=== PATIENT | male | born 1980 | race Caucasian/White ===

== ENCOUNTER 2019-02-23 13:28 | Inpatient (IN) | payer OTHER ==
[2019-02-23] MEDS ORDERED: FOLIC ACID INJECTION - 1 MG, THIAMINE HCL 100 MG, MULTIVIT INJECTION ADULT 10 ML in SOD... IVPB ONE (14:18)
[2019-02-23] MEDS ORDERED: chlordiazePOXIDE HCL 25 MG CAPSULE PO ONE ×2 (14:18→14:23)
--- NOTE | 2019-02-23 14:25 | PDOC ---
History of Present Illness - General Chief Complaint: Alcohol intoxication Stated Complaint: Alcohol intoxication Time Seen by Provider: 02/23/19 13:57 History Source: Patient Exam Limitations: No Limitations - History of Present Illness Initial Comments: 02/23/19 14:39 38 yo M with a hx of ETOH abuse presents to the emergency department s/p fall that occurred today with positive LOC. Per the patient's mother at bedside, the patient was seen yesterday (lives with maternal grandfather) with more shaking than usual in the upper extremities bilaterally. The patient at 9:30 am had an unwitnessed fall today that he doesnt remember. The mother heard the fall with a scream antecedent to it. She found the patient with upper extremity flexion bilaterally with rigidity that lasted for 1 minute on the floor. Regained consciousness but with confusion and disorientation for 20 minutes. He does not have a memory of the event. At 12:30 pm, he had another episode without recollection of the precipitating events. Denies hx of seizures, alcohol withdraw related seizures, and DTs. The patient denies recent trauma. Currently , he feels anxious at baseline level. Denies hallucinations (Tactile, audio, visual) and headaches. Allergies: NKDA Surgery hx: None Meds: None Social: Denies tobacco, alcohol, and substance abuse. Past History - Past Medical History Allergies/Adverse Reactions: Allergies Allergy/AdvReac Type Severity Reaction Status Date / Time No Known Allergies Allergy Verified 02/23/19 14:01 Home Medications: Ambulatory Orders NK [No Known Home Medication] 02/23/19 COPD: No Psychiatric Problems: Yes Seizures: (anxiety) Other medical history: head trauma/frontal lobe - Suicide/Smoking/Psychosocial Hx Smoking History: Current every day smoker Number of Cigarettes Smoked Daily: 10 Information on smoking cessation initiated: No Hx Alcohol Use: Yes (4 24oz beers daily) Drug/Substance Use Hx: No Review of Systems - Review of Systems Able to Perform ROS?: Yes Is the patient limited Kyrgyz proficient: No Constitutional: Yes: Diaphoresis. No: Chills, Fever HEENTM: No: Eye Pain, Blurred Vision, Double Vision, Ear Pain, Nose Pain, Throat Pain, Mouth Pain Respiratory: No: Cough, Shortness of Breath, Hemoptysis Cardiac (ROS): No: Chest Pain, Lightheadedness, Palpitations, Syncope ABD/GI: No: Constipated, Diarrhea, Nausea, Rectal Bleeding, Vomiting, Tarry Stools : No: Burning, Dysuria, Hematuria Musculoskeletal: No: Back Pain, Joint Pain, Neck Pain Integumentary: No: Bruising, Erythema, Rash Neurological: Yes: Tremors. No: Headache, Numbness Psychiatric: No: Change in Appetite Endocrine: No: Unexplained Weight Gain Hematologic/Lymphatic: No: Anemia *Physical Exam - Vital Signs Last Vital Signs Temp Pulse Resp BP Pulse Ox 98.8 F 123 H 18 150/97 96 02/23/19 13:55 02/23/19 13:55 02/23/19 13:55 02/23/19 13:55 02/23/19 13:55 - Physical Exam Comments: 02/23/19 14:48 Physical Exam: Gen: anxious appearing, A+O x3, NAD, speaking in full sentences. Generalized body tremors noted. HEENT: NC/AT, PERRLA, EOMI, no pharyngeal erythema/exudates. Of note, bite oliver located on the lateral aspects of the tongue without active bleeding. Neck: Nontender, FROM, supple CV: regular rhythm, tachycardia, no m/r/g, nml S1 S2 Chest wall: nontender, no rash Lungs: CTA Bilat Abd: S/NT/ND, no masses, no rebound/guarding Extr: distal pulses 2+, warm and well-perfused, no LE edema Neuro: CN II-XII intact, 5/5 strength in bilat deltoids, triceps, biceps, quadriceps, hamstrings, and calves, ambulating with normal gait. No fine touch sensory deficits. Tongue fasciculation noted. Tremors noted on UE. ED Treatment Course - LABORATORY CBC & Chemistry Diagram: 02/23/19 14:20 02/23/19 14:22 - RADIOLOGY Radiology Studies Ordered: Category Date Time Status HEAD CT WITHOUT CONTRAST [CT] Stat CT Scan 02/23/19 14:23 Ordered CHEST PA & LAT [RAD] Stat Radiology 02/23/19 14:18 Ordered Medical Decision Making - Medical Decision Making 02/23/19 14:49 38 yo M with a hx of ETOH abuse presents to the emergency department s/p fall that occurred today with positive LOC. Initial vitals; Initial Vital Signs Temp Pulse BP Pulse Ox 98.4 F 127 H 159/98 93 L 02/23/19 13:33 02/23/19 13:33 02/23/19 13:33 02/23/19 13:33 02/23/19 16:07 work up: concerns for alcohol withdrawal induced seizure. patient denies hx of seizures and recently stopped drinking alcohol on thursday evening. the patient stated he wanted to stop because "i dont feel good with it". the patient's mother stated he was stiff when she found him and had a 20 minute period before returning to baseline mentally. will order syncope work up and head ct with urine tox. Laboratory Tests 02/23/19 02/23/19 02/23/19 14:20 14:22 14:22 WBC 7.3 RBC 4.13 Hgb 14.6 Hct 42.4 MCV 102.7 H MCH 35.3 H MCHC 34.4 RDW 14.3 Plt Count 115 L MPV 7.9 Absolute Neuts (auto) 6.1 Neutrophils % 82.4 Lymphocytes % 5.3 L Monocytes % 11.5 H Eosinophils % 0.1 Basophils % 0.7 Nucleated RBC % 0 Sodium 137 Potassium 3.1 L Chloride 102 Carbon Dioxide 24 Anion Gap 10 BUN 5.7 L Creatinine 1.0 Est GFR (CKD-EPI)AfAm 111.73 Est GFR (CKD-EPI)NonAf 96.40 Random Glucose 129 H Calcium 9.5 Phosphorus 1.0 L* Magnesium 2.4 Total Bilirubin 1.6 H AST 209 H ALT 136 H Alkaline Phosphatase 95 Creatine Kinase 184 Creatine Kinase Index 0.6 CK-MB (CK-2) 1.2 Troponin I < 0.02 Total Protein 7.5 Albumin 4.8 TSH 1.97 Opiates Screen Methadone Screen Barbiturate Screen Phencyclidine Screen Ur Amphetamines Screen MDMA (Ecstasy) Screen Benzodiazepines Screen Cocaine Screen U Marijuana (THC) Screen Alcohol, Quantitative < 3.0 02/23/19 14:34 WBC RBC Hgb Hct MCV MCH MCHC RDW Plt Count MPV Absolute Neuts (auto) Neutrophils % Lymphocytes % Monocytes % Eosinophils % Basophils % Nucleated RBC % Sodium Potassium Chloride Carbon Dioxide Anion Gap BUN Creatinine Est GFR (CKD-EPI)AfAm Est GFR (CKD-EPI)NonAf Random Glucose Calcium Phosphorus Magnesium Total Bilirubin AST ALT Alkaline Phosphatase Creatine Kinase Creatine Kinase Index CK-MB (CK-2) Troponin I Total Protein Albumin TSH Opiates Screen Negative Methadone Screen Negative Barbiturate Screen Negative Phencyclidine Screen Negative Ur Amphetamines Screen Negative MDMA (Ecstasy) Screen Negative Benzodiazepines Screen Negative Cocaine Screen Negative U Marijuana (THC) Screen Negative Alcohol, Quantitative patients head ct was within normal limits. the chest xray was within normal limits. EKG shows sinus rhythm with tachycardia with TWI in Lead 3. No other EKG to compare to. the patient was given librium 50 mg and ativan 2 mg. will give banana bag. patient to be admitted to hospitalist service to tele. Dispo: Admit *DC/Admit/Observation/Transfer Diagnosis at time of Disposition: Seizure - Referrals - Patient Instructions - Post Discharge Activity
[2019-02-23] MEDS ORDERED: chlordiazePOXIDE HCL 25 MG CAPSULE ONE (14:33)
[2019-02-23] MEDS ORDERED: LORazepam 2 MG/ML SDV VIAL ONE (14:33)
[2019-02-23 14:48] LABS: BASO % 0.7 % (0-2.0); EOS % 0.1 % (0-4.5); HEMATOCRIT 42.4 % (35.4-49); HEMOGLOBIN 14.6 GM/dL (11.7-16.9); LYMPH % 5.3 % (8-40); MCH 35.3 pg (25.7-33.7); MCHC 34.4 g/dl (32.0-35.9); MEAN CELL VOLUME 102.7 fl (80-96); MEAN PLT VOLUME 7.9 fl (7.5-11.1); MONO % 11.5 % (3.8-10.2); NEUT % 82.4 % (42.8-82.8); PLATELET COUNT 115 K/MM3 (134-434); RBC 4.13 M/mm3 (4.00-5.60); RDW 14.3 % (11.9-15.9); WHITE BLOOD COUNT 7.3 K/mm3 (4.0-10.0)
[2019-02-23 15:13] LABS: ALBUMIN 4.8 g/dl (3.4-5.0); ALK PHOS 95 U/L (45-117); ANION GAP 10 MMOL/L (8-16); BILIRUBIN,TOTAL 1.6 mg/dL (0.2-1); BLOOD UREA NITROGEN 5.7 mg/dL (7-18); CALCIUM 9.5 mg/dL (8.5-10.1); CHLORIDE 102 mmol/L (98-107); CO2 24 mmol/L (21-32); GLUCOSE,RANDOM 129 mg/dL (74-106); POTASSIUM 3.1 mmol/L (3.5-5.1); SGOT/AST 209 U/L (15-37); SGPT/ALT 136 U/L (13-61); SODIUM 137 mmol/L (136-145); TOT PROT 7.5 g/dl (6.4-8.2)
[2019-02-23 15:14] LABS: COCAINE, UR NEGATIVE ng/ml (CUTOFF=300); METHADONE, UR NEGATIVE ng/ml (CUTOFF=300); OPIATES, URI NEGATIVE ng/ml (CUTOFF=300); PHENCYCLIDINE,URINE NEGATIVE ng/ml (CUTOFF=25); URINE AMPHETAMINES NEGATIVE ng/ml (CUTOFF=500); URINE BARBITURATES NEGATIVE ng/ml (CUTOFF=200); URINE BENZODIAZEPINES NEGATIVE ng/ml (CUTOFF=200)
[2019-02-23] MEDS ORDERED: NAPH,MB-DB/K PH,MBDB POWDER PACKET PO ONE (15:21)
--- NOTE | 2019-02-23 15:31 | PDOC ---
Documentation entered by Stephani Taylor SCRIBE, acting as scribe for Ranjana Campos MD. Ranjana Campos MD: This documentation has been prepared by the Brandon lopez Brenda, SCRIBE, under my direction and personally reviewed by me in its entirety. I confirm that the documentation accurately reflects all work, treatment, procedures, and medical decision making performed by me. Attending Attestation - Resident Resident Name: Júnior Ryan - ED Attending Attestation I have performed the following: I have examined & evaluated the patient, The case was reviewed & discussed with the resident, I agree w/resident's findings & plan, Exceptions are as noted - HPI HPI: 02/23/19 15:27 The patient is a 57 year old male, with know Etoh abuse, with his last drink being Thursday (02/21/19), no significant past medical history, who presents to the emergency department with alcohol intoxication. As per mother, on the bedside, the patient had an episode today at 9:30am, where the mother heard a loud scream, at which time she found her son, on the floor, as stiff as a board , clenching his teeth with his eyes rolled back. She notes that this episode lasted 1 minute, and it took 20 minutes for the patient to come back to consciousness. The mom noted that her son had a repeated episode at 12:30pm. The mom also notes, that both times, she tried doing chest compressions, at which times, the patient gasped for air, and was bleeding from his mouth. She also notes that the patient was seen yesterday (02/23/19) trembling his hands and had a couple of vomiting episodes. The patient now reports feeling anxious. 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 The patient denies hallucinations. Denies chest pain, headache and dizziness. Denies fever, chills, nausea, vomiting, diarrhea and constipation. Denies dysuria, frequency, urgency and hematuria. Denies any other symptoms. Allergies: NKA Past surgical history: no surgery. Social history: Hx of Etoh abuse (4 24oz beers daily). Tobacco use. No drug use. PCP: Not reported - Physicial Exam PE: 02/23/19 15:21 GENERAL: The patient is in no acute distress, pt is anxious appearing, tremulous , Awake and Alert ENT: Ears normal, nares patent, oropharynx clear without exudates. Dry mucous membranes. Tongue fasciculation NECK: Normal range of motion, supple, no nuchal rigidity LUNGS: Breath sounds equal, clear to auscultation bilaterally. No wheezes, and no crackles. HEART: Tachycardiac, regular, normal S1 and S2 without murmur, rub or gallop. ABDOMEN: Soft, nontender, normoactive bowel sounds. EXTREMITIES: Normal range of motion, no edema. NEUROLOGICAL: Cranial nerves II through XII grossly intact. Normal speech. No focal neurological deficits. 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
--- NOTE | 2019-02-23 15:54 | EKG ---
Test Reason : Blood Pressure : / mmHG Vent. Rate : 098 BPM Atrial Rate : 098 BPM P-R Int : 170 ms QRS Dur : 100 ms QT Int : 356 ms P-R-T Axes : 048 073 012 degrees QTc Int : 454 ms NORMAL SINUS RHYTHM T WAVE ABNORMALITY, CONSIDER INFERIOR ISCHEMIA ABNORMAL ECG NO PREVIOUS ECGS AVAILABLE Confirmed by NELI MCCLELLAND MD ([id number]) on 02/23/2019 3:53:56 PM Referred By: Confirmed By:NELI MCCLELLAND MD
--- NOTE | 2019-02-23 18:41 | HP ---
Admitting History and Physical - Primary Care Physician PCP: Echo Mcadams - Admission History of Present Illness: 57 year old male, with know Etoh abuse, with his last drink being Thursday (), no significant past medical history, who presents to the emergency department with alcohol intoxication. As per mother, on the bedside, the patient had an episode today at 9:30am, where the mother heard a loud scream, at which time she found her son, on the floor, as stiff as a board, clenching his teeth with his eyes rolled back. She notes that this episode lasted 1 minute , and it took 20 minutes for the patient to come back to consciousness. The mom noted that her son had a repeated episode at 12:30pm. The mom also notes, that both times, she tried doing chest compressions, at which times, the patient gasped for air, and was bleeding from his mouth. She also notes that the patient was seen yesterday (02/23/19) trembling his hands and had a couple of vomiting episodes. The patient now reports feeling anxious. 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 The patient denies hallucinations. Denies chest pain, headache and dizziness. Denies fever, chills, nausea, vomiting, diarrhea and constipation. Denies dysuria, frequency, urgency and hematuria. Denies any other symptoms. - Smoking History Smoking history: Current every day smoker Aproximately how many cigarettes per day: 10 - Alcohol/Substance Use Hx Alcohol Use: Yes (4 24oz beers daily) Home Medications - Allergies Allergies/Adverse Reactions: Allergies Allergy/AdvReac Type Severity Reaction Status Date / Time No Known Allergies Allergy Verified 02/23/19 14:01 - Home Medications Home Medications: Ambulatory Orders NK [No Known Home Medication] 02/23/19 Physical Examination Vital Signs: Vital Signs Temperature 98.8 F 02/23/19 13:55 Pulse Rate 123 H 02/23/19 13:55 Respiratory Rate 18 02/23/19 13:55 Blood Pressure 150/97 02/23/19 13:55 O2 Sat by Pulse Oximetry (%) 96 02/23/19 13:55 Constitutional: Yes: Calm HENT: Yes: Atraumatic Neck: Yes: Supple Cardiovascular: Yes: Regular Rate and Rhythm Respiratory: Yes: CTA Bilaterally Gastrointestinal: Yes: Normal Bowel Sounds Extremities: Yes: WNL Edema: No Neurological: Yes: Alert, Oriented Labs: CBC, BMP 02/23/19 14:20 02/23/19 14:22 Problem List - Problems (1) Seizure Assessment/Plan: seizure precautions looks better now Code(s): R56.9 - UNSPECIFIED CONVULSIONS (2) Alcohol withdrawal seizure Assessment/Plan: will get detox consult librium taper Code(s): F10.239 - ALCOHOL DEPENDENCE WITH WITHDRAWAL, UNSPECIFIED; R56.9 - UNSPECIFIED CONVULSIONS Assessment/Plan Laboratory Tests 02/23/19 02/23/19 02/23/19 14:20 14:22 14:22 WBC 7.3 RBC 4.13 Hgb 14.6 Hct 42.4 MCV 102.7 H MCH 35.3 H MCHC 34.4 RDW 14.3 Plt Count 115 L MPV 7.9 Absolute Neuts (auto) 6.1 Neutrophils % 82.4 Lymphocytes % 5.3 L Monocytes % 11.5 H Eosinophils % 0.1 Basophils % 0.7 Nucleated RBC % 0 Sodium 137 Potassium 3.1 L Chloride 102 Carbon Dioxide 24 Anion Gap 10 BUN 5.7 L Creatinine 1.0 Est GFR (CKD-EPI)AfAm 111.73 Est GFR (CKD-EPI)NonAf 96.40 Random Glucose 129 H Calcium 9.5 Phosphorus 1.0 L* Magnesium 2.4 Total Bilirubin 1.6 H AST 209 H ALT 136 H Alkaline Phosphatase 95 Creatine Kinase 184 Creatine Kinase Index 0.6 CK-MB (CK-2) 1.2 Troponin I < 0.02 Total Protein 7.5 Albumin 4.8 TSH 1.97 Opiates Screen Methadone Screen Barbiturate Screen Phencyclidine Screen Ur Amphetamines Screen MDMA (Ecstasy) Screen Benzodiazepines Screen Cocaine Screen U Marijuana (THC) Screen Alcohol, Quantitative < 3.0 02/23/19 14:34 WBC RBC Hgb Hct MCV MCH MCHC RDW Plt Count MPV Absolute Neuts (auto) Neutrophils % Lymphocytes % Monocytes % Eosinophils % Basophils % Nucleated RBC % Sodium Potassium Chloride Carbon Dioxide Anion Gap BUN Creatinine Est GFR (CKD-EPI)AfAm Est GFR (CKD-EPI)NonAf Random Glucose Calcium Phosphorus Magnesium Total Bilirubin AST ALT Alkaline Phosphatase Creatine Kinase Creatine Kinase Index CK-MB (CK-2) Troponin I Total Protein Albumin TSH Opiates Screen Negative Methadone Screen Negative Barbiturate Screen Negative Phencyclidine Screen Negative Ur Amphetamines Screen Negative MDMA (Ecstasy) Screen Negative Benzodiazepines Screen Negative Cocaine Screen Negative U Marijuana (THC) Screen Negative Alcohol, Quantitative Active Medications Generic Name Dose Route Start Last Admin Trade Name Freq PRN Reason Stop Dose Admin Chlordiazepoxide HCl 50 mg 02/24/19 18:04 Librium - PO 02/25/19 06:00 Q6HPO [facility] Multivitamins/Minerals/Vitamin C 1 tab 02/24/19 18:15 Tab-A-Vit - PO DAILY [facility] Thiamine HCl 100 mg 02/24/19 18:15 Vitamin B1 - PO DAILY [facility]
--- NOTE | 2019-02-24 09:51 | CON.NEURO ---
Consult - History of Present Illness History of Present Illness: 38 year old male, with know Etoh abuse, with his last drink being Thursday (), no significant past medical history, who presents to the emergency department with alcohol intoxication. As per mother, on the bedside, the patient had an episode today at 9:30am, where the mother heard a loud scream, at which time she found her son, on the floor, as stiff as a board, clenching his teeth with his eyes rolled back. She notes that this episode lasted 1 minute , and it took 20 minutes for the patient to come back to consciousness. The mom noted that her son had a repeated episode at 12:30pm. The mom also notes, that both times, she tried doing chest compressions, at which times, the patient gasped for air, and was bleeding from his mouth. She also notes that the patient was seen yesterday (02/23/19) trembling his hands and had a couple of vomiting episodes. The patient now reports feeling anxious. Has been drinking > 15 years, has never been to rehab. Sister was killed age of 44 years old as per mom. Mom has HX of ETOH, now sober. CT HD (-) ; Started on Librium taper in ER. - Alcohol/Substance Use Hx Alcohol Use: Yes (4 24oz beers daily) - Smoking History Smoking history: Current every day smoker Aproximately how many cigarettes per day: 10 Home Medications - Allergies Allergies/Adverse Reactions: Allergies Allergy/AdvReac Type Severity Reaction Status Date / Time No Known Allergies Allergy Verified 02/23/19 14:01 - Home Medications Home Medications: Ambulatory Orders NK [No Known Home Medication] 02/23/19 Physical Exam-Neuro Vital Signs: Vital Signs Temperature 98.3 F 02/23/19 22:52 Pulse Rate 82 02/24/19 06:13 Respiratory Rate 18 02/24/19 06:13 Blood Pressure 108/79 02/24/19 06:13 O2 Sat by Pulse Oximetry (%) 99 02/24/19 07:16 Labs: CBC, BMP 02/23/19 14:20 02/23/19 14:22 - Neuro Exam Level Of Consciousness: Yes: Alert (awake, alert, EOMI, no facial, no drift, no asterixis , reflxes symmetric ) Imaging - Results Cat Scan: Report Reviewed, Image Reviewed Problem List - Problems (1) Alcohol withdrawal seizure Code(s): F10.239 - ALCOHOL DEPENDENCE WITH WITHDRAWAL, UNSPECIFIED; R56.9 - UNSPECIFIED CONVULSIONS Assessment/Plan 38 year old male, with know Etoh abuse, with his last drink being Thursday (), no significant past medical history, who presents to the emergency department with alcohol intoxication. As per mother, on the bedside, the patient had an episode today at 9:30am, where the mother heard a loud scream, at which time she found her son, on the floor, as stiff as a board, clenching his teeth with his eyes rolled back. She notes that this episode lasted 1 minute , and it took 20 minutes for the patient to come back to consciousness. The mom noted that her son had a repeated episode at 12:30pm. The mom also notes, that both times, she tried doing chest compressions, at which times, the patient gasped for air, and was bleeding from his mouth. She also notes that the patient was seen yesterday (02/23/19) trembling his hands and had a couple of vomiting episodes. The patient now reports feeling anxious. Has been drinking > 15 years, has never been to rehab. Sister was killed age of 44 years old as per mom. Mom has HX of ETOH, now sober. CT HD (-) ; Started on Librium taper in ER. AP : ETOH withdrawl Seizure agree with librium taper no need for [facility] no signs of DT's he may be interested in outpt REHAB, also [facility], PSYCHIATRY as outpt Neurologically stable DR LLANOS
[2019-02-24 15:08] VITALS: BMI 22.3
--- NOTE | 2019-02-24 18:07 | PN ---
Progress Note, Physician History of Present Illness: stable - Current Medication List Current Medications: Active Medications Chlordiazepoxide HCl (Librium -) 50 mg PO Q6HPO [facility] Stop: 02/25/19 06:00 Multivitamins/Minerals/Vitamin C (Tab-A-Vit -) 1 tab PO DAILY [facility] Thiamine HCl (Vitamin B1 -) 100 mg PO DAILY [facility] - Objective Vital Signs: Vital Signs Temperature 98.5 F 02/24/19 14:48 Pulse Rate 91 H 02/24/19 14:48 Respiratory Rate 20 02/24/19 14:48 Blood Pressure 127/82 02/24/19 14:48 O2 Sat by Pulse Oximetry (%) 97 02/24/19 14:48 Constitutional: Yes: No Distress HENT: Yes: Atraumatic Neck: Yes: Supple Cardiovascular: Yes: Regular Rate and Rhythm Respiratory: Yes: CTA Bilaterally Gastrointestinal: Yes: Normal Bowel Sounds Extremities: Yes: WNL Edema: No Peripheral Pulses WNL: Yes Neurological: Yes: Alert, Oriented Labs: CBC, BMP 02/23/19 14:20 02/23/19 14:22 Problem List - Problems (1) Seizure Assessment/Plan: seizure precautions looks better now neuro note reviewed Code(s): R56.9 - UNSPECIFIED CONVULSIONS (2) Alcohol withdrawal seizure Assessment/Plan: will get detox consult librium taper Code(s): F10.239 - ALCOHOL DEPENDENCE WITH WITHDRAWAL, UNSPECIFIED; R56.9 - UNSPECIFIED CONVULSIONS
[2019-02-24] MEDS: NAPH,MB-DB/K PH,MBDB POWDER PACKET PO SCH (18:23)
[2019-02-24] MEDS: chlordiazePOXIDE HCL 25 MG CAPSULE PO SCH (18:23)
[2019-02-24] MEDS: THIAMINE HCL 100 MG TABLET (FP) PO SCH (18:23)
[2019-02-24] MEDS: MULTIVITAMINS (DAILY MVI) TABLET (FP) PO SCH (18:23)
[2019-02-25] MEDS: chlordiazePOXIDE HCL 25 MG CAPSULE PO SCH ×4 (00:11→17:51)
[2019-02-25 06:25] LABS: BASO % 0.9 % (0-2.0); HEMATOCRIT 40.2 % (35.4-49); HEMOGLOBIN 13.9 GM/dL (11.7-16.9); LYMPH % 20.4 % (8-40); MCH 35.7 pg (25.7-33.7); MCHC 34.6 g/dl (32.0-35.9); MEAN CELL VOLUME 103.4 fl (80-96); MEAN PLT VOLUME 8.5 fl (7.5-11.1); MONO % 12.7 % (3.8-10.2); PLATELET COUNT 94 K/MM3 (134-434); RBC 3.88 M/mm3 (4.00-5.60); RDW 13.8 % (11.9-15.9); WHITE BLOOD COUNT 5.1 K/mm3 (4.0-10.0)
[2019-02-25 07:17] LABS: ALBUMIN 3.6 g/dl (3.4-5.0); BILIRUBIN,TOTAL 1.2 mg/dL (0.2-1); BLOOD UREA NITROGEN 7.6 mg/dL (7-18); CALCIUM 8.7 mg/dL (8.5-10.1); CREATININE 0.7 mg/dL (0.55-1.3); POTASSIUM 3.2 mmol/L (3.5-5.1); TOT PROT 6.1 g/dl (6.4-8.2)
[2019-02-25] MEDS: MULTIVITAMINS (DAILY MVI) TABLET (FP) PO SCH (10:31)
[2019-02-25] MEDS: NAPH,MB-DB/K PH,MBDB POWDER PACKET PO SCH (10:32)
[2019-02-25] MEDS: THIAMINE HCL 100 MG TABLET (FP) PO SCH (10:32)
[2019-02-25 10:47] LABS: PHOSPHOROUS 4.3 mg/dL (2.5-4.9)
--- NOTE | 2019-02-25 16:31 | PN ---
Progress Note, Physician History of Present Illness: stable - Current Medication List Current Medications: Active Medications Chlordiazepoxide HCl (Librium -) 25 mg PO Q6HPO [facility] Last Admin: 02/25/19 11:11 Dose: 25 mg Multivitamins/Minerals/Vitamin C (Tab-A-Vit -) 1 tab PO DAILY [facility] Last Admin: 02/25/19 10:31 Dose: 1 tab Potassium Phos/Sodium Phos (Phos-Nak Packet -) 1 packet PO DAILY [facility] Last Admin: 02/25/19 10:32 Dose: 1 packet Thiamine HCl (Vitamin B1 -) 100 mg PO DAILY [facility] Last Admin: 02/25/19 10:32 Dose: 100 mg - Objective Vital Signs: Vital Signs Temperature 98.2 F 02/25/19 14:20 Pulse Rate 72 02/25/19 14:20 Respiratory Rate 18 02/25/19 14:20 Blood Pressure 121/78 02/25/19 14:20 O2 Sat by Pulse Oximetry (%) 100 02/25/19 15:00 Constitutional: Yes: No Distress HENT: Yes: Atraumatic Neck: Yes: Supple Cardiovascular: Yes: Regular Rate and Rhythm Respiratory: Yes: CTA Bilaterally Gastrointestinal: Yes: Normal Bowel Sounds Extremities: Yes: WNL Neurological: Yes: Alert, Oriented Labs: CBC, BMP 02/25/19 05:20 02/25/19 05:20 Problem List - Problems (1) Seizure Assessment/Plan: seizure precautions looks better now neuro note reviewed Code(s): R56.9 - UNSPECIFIED CONVULSIONS (2) Alcohol withdrawal seizure Assessment/Plan: librium protocol ...taper Code(s): F10.239 - ALCOHOL DEPENDENCE WITH WITHDRAWAL, UNSPECIFIED; R56.9 - UNSPECIFIED CONVULSIONS
[2019-02-25] MEDS ORDERED: chlordiazePOXIDE HCL 10 MG CAPSULE PO PRN (18:27)
--- NOTE | 2019-02-25 18:27 | PN ---
S Progress Note (SOAP) Subjective: 57 year old male referred for etoh abuse , pt denies alcohol use states he stopped " some time ago " , appears to be evasive and minimizing use , states drinking 2 x 6-pk per day since age 23 , and stopped suddenly last Thursday ( per MR Thursday02/21/19 ) had seizure on Thursday , pt states " not a big deal,I don't even know if it was a seizure " . Pt denies current symptoms states he is feeling well and is unsure of the reason for his hospitalization . After a lengthy discussion , reports some interest in attending outpt program and self-help groups such as AA , and is adamant against inpt detox/ rehab . Active Medications Chlordiazepoxide HCl (Librium -) 25 mg PO Q6HPO [facility] Last Admin: 02/25/19 17:51 Dose: 25 mg Multivitamins/Minerals/Vitamin C (Tab-A-Vit -) 1 tab PO DAILY [facility] Last Admin: 02/25/19 10:31 Dose: 1 tab Potassium Phos/Sodium Phos (Phos-Nak Packet -) 1 packet PO DAILY [facility] Last Admin: 02/25/19 10:32 Dose: 1 packet Thiamine HCl (Vitamin B1 -) 100 mg PO DAILY [facility] Last Admin: 02/25/19 10:32 Dose: 100 mg PMHx : denies Objective: wnwd , alert , appears confused at times about timeline of events and evasive about answering questions regarding alcohol use avoids eye contact throughout interview. + UE tremors noted CBC, BMP 02/25/19 05:20 02/25/19 05:20 Vital Signs - 24 hr 02/24/19 02/24/19 02/25/19 21:00 22:24 01:00 Temperature 97.8 F 98.0 F Pulse Rate 76 63 Respiratory 19 20 Rate Blood Pressure 118/72 117/74 O2 Sat by Pulse 97 Oximetry (%) 02/25/19 02/25/19 02/25/19 05:00 06:23 09:00 Temperature 98.3 F 98.2 F Pulse Rate 78 71 Respiratory 17 20 Rate Blood Pressure 122/77 112/75 O2 Sat by Pulse 100 Oximetry (%) 02/25/19 02/25/19 14:20 15:00 Temperature 98.2 F Pulse Rate 72 Respiratory 18 Rate Blood Pressure 121/78 O2 Sat by Pulse 100 Oximetry (%) Assessment: alcohol abuse / dependence Plan: continue Librium detox pt to consider referral to outpt clinic .
[2019-02-25] MEDS ORDERED: chlordiazePOXIDE 5 MG CAPSULE PO PRN ×3 (18:39→18:40)
[2019-02-25] MEDS ORDERED: chlordiazePOXIDE 5 MG CAPSULE PO ONE (18:45)
[2019-02-25] MEDS ORDERED: chlordiazePOXIDE 5 MG CAPSULE PO SCH (18:45)
[2019-02-26] MEDS: chlordiazePOXIDE HCL 25 MG CAPSULE PO SCH ×4 (00:29→18:56)
[2019-02-26] MEDS: MULTIVITAMINS (DAILY MVI) TABLET (FP) PO SCH (11:25)
[2019-02-26] MEDS: NAPH,MB-DB/K PH,MBDB POWDER PACKET PO SCH (11:25)
[2019-02-26] MEDS: THIAMINE HCL 100 MG TABLET (FP) PO SCH (11:25)
--- NOTE | 2019-02-26 19:35 | PN ---
Progress Note, Physician History of Present Illness: stable - Current Medication List Current Medications: Active Medications Chlordiazepoxide HCl (Librium -) 25 mg PO Q6HPO [facility] Stop: 02/26/19 23:59 Last Admin: 02/26/19 18:56 Dose: 25 mg Chlordiazepoxide HCl (Librium -) 15 mg PO Q8H [facility] Stop: 02/27/19 21:01 Chlordiazepoxide HCl (Librium -) 10 mg PO Q8H [facility] Stop: 02/28/19 19:01 Chlordiazepoxide HCl (Librium -) 10 mg PO ONCE ONE Stop: 03/01/19 05:01 Multivitamins/Minerals/Vitamin C (Tab-A-Vit -) 1 tab PO DAILY [facility] Last Admin: 02/26/19 11:25 Dose: 1 tab Potassium Phos/Sodium Phos (Phos-Nak Packet -) 1 packet PO DAILY [facility] Last Admin: 02/26/19 11:25 Dose: 1 packet Thiamine HCl (Vitamin B1 -) 100 mg PO DAILY [facility] Last Admin: 02/26/19 11:25 Dose: 100 mg - Objective Vital Signs: Vital Signs Temperature 98 F 02/26/19 14:10 Pulse Rate 77 02/26/19 14:10 Respiratory Rate 73 H 02/26/19 18:00 Blood Pressure 151/84 02/26/19 18:00 O2 Sat by Pulse Oximetry (%) 100 02/26/19 15:00 Constitutional: Yes: No Distress HENT: Yes: Atraumatic Neck: Yes: Supple Cardiovascular: Yes: Regular Rate and Rhythm Respiratory: Yes: CTA Bilaterally Gastrointestinal: Yes: Normal Bowel Sounds Extremities: Yes: WNL Neurological: Yes: Alert, Oriented Labs: CBC, BMP 02/25/19 05:20 02/25/19 05:20 Problem List - Problems (1) Seizure Assessment/Plan: stable Code(s): R56.9 - UNSPECIFIED CONVULSIONS (2) Alcohol withdrawal seizure Assessment/Plan: librium protocol ...taper Code(s): F10.239 - ALCOHOL DEPENDENCE WITH WITHDRAWAL, UNSPECIFIED; R56.9 - UNSPECIFIED CONVULSIONS
[2019-02-27] MEDS: chlordiazePOXIDE 5 MG CAPSULE PO SCH ×3 (05:41→20:43)
[2019-02-27] MEDS: NAPH,MB-DB/K PH,MBDB POWDER PACKET PO SCH (10:09)
[2019-02-27] MEDS: MULTIVITAMINS (DAILY MVI) TABLET (FP) PO SCH (10:09)
[2019-02-27] MEDS: THIAMINE HCL 100 MG TABLET (FP) PO SCH (10:10)
--- NOTE | 2019-02-27 16:51 | PN ---
Progress Note, Physician History of Present Illness: stable - Current Medication List Current Medications: Active Medications Chlordiazepoxide HCl (Librium -) 15 mg PO Q8H [facility] Stop: 02/27/19 21:01 Last Admin: 02/27/19 13:39 Dose: 15 mg Chlordiazepoxide HCl (Librium -) 10 mg PO Q8H [facility] Stop: 02/28/19 19:01 Chlordiazepoxide HCl (Librium -) 10 mg PO ONCE ONE Stop: 03/01/19 05:01 Multivitamins/Minerals/Vitamin C (Tab-A-Vit -) 1 tab PO DAILY [facility] Last Admin: 02/27/19 10:09 Dose: 1 tab Potassium Phos/Sodium Phos (Phos-Nak Packet -) 1 packet PO DAILY [facility] Last Admin: 02/27/19 10:09 Dose: 1 packet Thiamine HCl (Vitamin B1 -) 100 mg PO DAILY [facility] Last Admin: 02/27/19 10:10 Dose: 100 mg - Objective Vital Signs: Vital Signs Temperature 98.8 F 02/27/19 13:00 Pulse Rate 68 02/27/19 13:00 Respiratory Rate 18 02/27/19 13:00 Blood Pressure 110/73 02/27/19 13:00 O2 Sat by Pulse Oximetry (%) 100 02/27/19 10:00 Constitutional: Yes: No Distress HENT: Yes: Atraumatic Neck: Yes: Supple Cardiovascular: Yes: Regular Rate and Rhythm Respiratory: Yes: CTA Bilaterally Gastrointestinal: Yes: Normal Bowel Sounds Extremities: Yes: WNL Edema: No Neurological: Yes: Alert, Oriented Labs: CBC, BMP 02/25/19 05:20 02/25/19 05:20 Problem List - Problems (1) Seizure Assessment/Plan: stable Code(s): R56.9 - UNSPECIFIED CONVULSIONS (2) Alcohol withdrawal seizure Assessment/Plan: librium protocol ...taper dc tomorrow after lunch Code(s): F10.239 - ALCOHOL DEPENDENCE WITH WITHDRAWAL, UNSPECIFIED; R56.9 - UNSPECIFIED CONVULSIONS
[2019-02-28] MEDS ORDERED: chlordiazePOXIDE HCL 10 MG CAPSULE PO PRN ×2
[2019-02-28] MEDS: chlordiazePOXIDE 5 MG CAPSULE PO SCH ×2 (03:59→11:13)
[2019-02-28] MEDS ORDERED: chlordiazePOXIDE HCL 10 MG CAPSULE PO SCH (05:00)
[2019-02-28] MEDS: NAPH,MB-DB/K PH,MBDB POWDER PACKET PO SCH (10:07)
[2019-02-28] MEDS: THIAMINE HCL 100 MG TABLET (FP) PO SCH (10:07)
[2019-02-28] MEDS: MULTIVITAMINS (DAILY MVI) TABLET (FP) PO SCH (10:07)
[2019-02-28 13:52] VITALS: BP 121/74; PULSE 77; TEMP 98
--- NOTE | 2019-02-28 21:16 | DS ---
Physical Examination Vital Signs: Vital Signs Temperature 98 F 02/28/19 13:50 Pulse Rate 77 02/28/19 13:50 Respiratory Rate 20 02/28/19 13:50 Blood Pressure 121/74 02/28/19 13:50 O2 Sat by Pulse Oximetry (%) 100 02/27/19 21:00 Labs: CBC, BMP 02/25/19 05:20 02/25/19 05:20 Discharge Summary Reason For Visit: ALCOHOL ABUSE SEIZURE Condition: Fair - Instructions Diet, Activity, Other Instructions: advice to stop drinking and follow up at [address] [place] [id number] detox clinic in out Referrals: Elisha Guadarrama DO [Staff Physician] - Disposition: HOME - Home Medications Comprehensive Discharge Medication List: Ambulatory Orders NK [No Known Home Medication] 02/23/19 [facility]
[2019-03-01] MEDS ORDERED: chlordiazePOXIDE HCL 10 MG CAPSULE PO ONE (05:00)
[2019-03-01] MEDS ORDERED: chlordiazePOXIDE 5 MG CAPSULE PO ONE (05:00)
== END 2019-02-28 17:00 | disposition home or self-care (01) | DRG 775 ==
LOC: JER 13:28 → JERBED 16:22 → INTOOBSV 16:22 → UNDOADMOB 16:22 → JERBED 18:46 → OBSVTOIN 19:36 → J4W 02-24 14:47 → J7W 02-26 21:29
PROVIDERS: ADMIT Internal Medicine; ATTEND Internal Medicine
PROC: HZ2ZZZZ Detoxification Services for Substance Abuse Treatment (ICD-10-PCS; principal; 2019-02-23)
DX: F10.231 Alcohol dependence with withdrawal delirium (principal); F41.9 Anxiety disorder, unspecified; F17.210 Nicotine dependence, cigarettes, uncomplicated; R56.9 Unspecified convulsions; Z87.820 Personal history of traumatic brain injury; R25.1 Tremor, unspecified
CPT/HCPCS: 36415; 70450-TC; 71046-TC-FY; 80053; 80307; 82550; 82553; 83735; 84100; 84443; 84484; 85025; 93005; 93010; 99285-25; G0378; J7030